=== PATIENT | male | born 1970 | race Caucasian/White ===

== ENCOUNTER 2019-11-28 14:42 | Emergency (ER) | payer OTHER ==
[2019-11-28] MEDS ORDERED: Acetaminophen TAB* 325 MG PO ONE (15:41)
--- NOTE | 2019-11-28 15:47 | ED ---
Influenza-Like Illness - HPI Summary HPI Summary: Patient is a 49-year-old male who presents emergency department for fever, cough , myalgias, headache is started yesterday. Denies past medical history. Denies associates symptoms of vomiting, diarrhea abdominal pain. Symptoms are mild in severity. No current modifying factors. - History of Current Complaint Chief Complaint: EDFluSymptoms Time Seen by Provider: 11/28/19 15:33 Hx Obtained From: Patient - Allergy/Home Medications Allergies/Adverse Reactions: Allergies Allergy/AdvReac Type Severity Reaction Status Date / Time No Known Allergies Allergy Verified 11/28/19 14:47 Home Medications: Home Medications Oseltamivir CAP* [Tamiflu CAP*] 75 mg PO BID #10 cap 11/28/19 [Rx] PMH/Surg Hx/FS Hx/Imm Hx Previously Healthy: Yes Endocrine/Hematology History: Denies: Hx Diabetes Cardiovascular History: Reports: Hx Angina Respiratory History: Reports: Hx Pneumonia - every year per pt, Hx Sleep Apnea Denies: Hx Asthma, Hx Chronic Obstructive Pulmonary Disease (COPD) Sensory History: Reports: Hx Contacts or Glasses - reading Opthamlomology History: Reports: Hx Contacts or Glasses - reading Neurological History: Reports: Other Neuro Impairments/Disorders - Pt having continued testing for "white spots on brain" and r/o MS - Surgical History Surgery Procedure, Year, and Place: Sleep apnea surgery on throat at age 32. Appendectomy at age 15. Left pointer finger partial amputation at age 22 [address] Irene Phillips Anesthesia Reactions: No Infectious Disease History: No Infectious Disease History: Reports: Hx Shingles - TREATED FOR SHINGLES 2-3 YEARS AGO Denies: Traveled Outside the [place] in Last 30 Days - Social History Alcohol Use: Occasionally Substance Use Type: Reports: None Smoking Status (MU): Never Smoked Tobacco Review of Systems Positive: Fever, Chills Positive: Sore Throat Cardiovascular: Negative Positive: Shortness Of Breath, Cough Gastrointestinal: Negative Negative: Abdominal Pain, Vomiting, Diarrhea Positive: Myalgia Skin: Negative Positive: Headache All Other Systems Reviewed And Are Negative: Yes Physical Exam Triage Information Reviewed: Yes Vital Signs On Initial Exam: Initial Vitals Temp Pulse Resp BP Pulse Ox 101.2 F 91 18 129/79 98 11/28/19 14:44 11/28/19 14:44 11/28/19 14:44 11/28/19 14:44 11/28/19 14:44 Vital Signs Reviewed: Yes Appearance: Positive: Well-Appearing - Patient sitting on bed in NAD. Appears to feel unwell and nontoxic. present. Skin: Positive: Warm, Dry Head/Face: Positive: Normal Head/Face Inspection Eyes: Positive: Normal, EOMI, MARY Neck: Positive: Supple, Nontender Respiratory/Lung Sounds: Positive: Clear to Auscultation, Breath Sounds Present Cardiovascular: Positive: Normal, RRR Neurological: Positive: Normal, CN Intact II-III Psychiatric: Positive: Affect/Mood Appropriate - he Procedures - Sedation Patient Received Moderate/Deep Sedation with Procedure: No Diagnostics - Vital Signs Vital Signs Temp Pulse Resp BP Pulse Ox 11/28/19 14:44 101.2 F 91 18 129/79 98 - Laboratory Lab Statement: Any lab studies that have been ordered have been reviewed, and results considered in the medical decision making process. Flu Symptom Course/Dx - Course Course Of Treatment: Patient was flulike symptoms. The ground the ED. Nontoxic appearing. Given Tylenol for fever. Positive influenza A. Patient would like Tamiflu since he is in the window. Recheck vital signs blood pressure has risen, Motrin given. Discussed supportive care. Discussed rotation of Tylenol and Motrin for pain and fever. Follow-up with PCP and return to the ER symptoms change or worsen. Patient understands and agrees with plan. - Diagnoses Differential Diagnosis/HQI/PQRI: Positive: Influenza, Pneumonia, Upper Respiratory Infection Provider Diagnoses: Influenza Discharge ED - Sign-Out/Discharge Documenting (check all that apply): Patient Departure - Discharge Plan Condition: Good Disposition: HOME Prescriptions: Oseltamivir CAP* [Tamiflu CAP*] 75 mg PO BID #10 cap Patient Education Materials: Influenza (ED) Forms: *Work Release Referrals: Ronnie Bullock MD [Primary Care Provider] - Additional Instructions: Follow up with PCP within a week if symptoms persist Tamiflu as directed Rotate 600mg ibuprofen and 500mg-1000mg tylenol every 3 hours for pain and fever control Increase fluids and rest Return to ER if symptoms change or worsen - Billing Disposition and Condition Condition: GOOD Disposition: Home - Attestation Statements Provider Attestation: pt seen by midlevel provider independently, based on their assessment, it was not necessary to present the case to me but I was available for consultation. I did not form a physician-patient relationship with the patient. The chart however, has been reviewed. am signing this note strictly in an administrative capacity.
[2019-11-28 16:46] LABS: Influenza A Molecular POSITIVE (Negative)
[2019-11-28] MEDS ORDERED: Ibuprofen TAB* 800 MG PO ONE (17:10)
[2019-11-28 18:55] VITALS: BP 126/82
== END 2019-11-28 17:10 | disposition home or self-care (01) ==
LOC: ED 14:42
DX: J11.1 Influenza due to unidentified influenza virus with other respiratory manifestations (principal); R50.9 Fever, unspecified; R05 Cough; R53.83 Other fatigue; R51 Headache
CPT/HCPCS: 99282; A9270-GY